=== PATIENT | male | born 1965 | race Caucasian/White ===

== ENCOUNTER 2016-11-29 10:24 | Emergency (ER) | payer OTHER ==
[~2016-11-29] VITALS: Ht 182.9 cm; Wt 98.0 kg
[~2016-11-29 10:24] MED LIST: NICO21DI5 TD; NORCOTAB PO; TYLE325T5 PO; XARE15TA PO
[2016-11-29 11:31] LABS: BASO # 0.1 K/mm3 (0.0-0.2); BASO % 0.9 % (0.0-1.0); EOS # 0.1 K/mm3 (0.0-0.50); LARGE UNSTAINED CELL # 0.1 K/mm3 (0.0-0.4); LARGE UNSTAINED CELL % 2.2 % (0.0-4.0); LYMPH # 1.6 K/mm3 (1.5-4.5); MEAN CORPUSCULAR HEMOGLOBIN 32.2 pg (27.0-33.0); MEAN CORPUSCULAR HGB CONC 34.2 g/dl (32.0-36.5); MEAN CORPUSCULAR VOLUME 94.1 fl (80.0-96.0); MONO # 0.4 K/mm3 (0.0-0.8); MONO % 6.6 % (0.0-5.0); NEUTROPHILS % 65.3 % (36.0-66.0); PLATELET COUNT, AUTOMATED 177 k/mm3 (150-450); WHITE BLOOD COUNT 6.2 K/mm3 (4.0-10.0)
[2016-11-29 11:51] LABS: ANION GAP 7 MEQ/L (8-16); BLOOD UREA NITROGEN 9 MG/DL (7-18); CARBON DIOXIDE LEVEL 28 MEQ/L (21-32); CHLORIDE LEVEL 105 MEQ/L (98-107); CREATININE FOR GFR 0.85 MG/DL (0.70-1.30); GLOMERULAR FILTRATION RATE > 60.0 (>60); GLUCOSE, FASTING 96 MG/DL (70-105); POTASSIUM SERUM 4.2 MEQ/L (3.5-5.1); SODIUM LEVEL 140 MEQ/L (136-145)
--- NOTE | 2016-11-29 11:52 | REP ---
CHEST, TWO VIEWS: HISTORY: Chest pain. COMPARISON: 05/09/2015 Linear densities are present in the right lower lobe consistent with atelectasis or scar. There is blunting of the right costophrenic angle due to pleural thickening. The left lung is clear. The heart is normal in size. The pulmonary vasculature is normal in appearance. The bony structure is intact. IMPRESSION: Right lower lobe atelectasis or scar. Signed by hKoa Watkins MD 11/29/2016 11:59 A
[2016-11-29] MEDS ORDERED: ASPIRIN 81 MG CHEW TABLET PO ONE (12:45)
[2016-11-29] MEDS: NITROGLYCERIN 0.4 MG SUBL TABLET SL PRN ×2 (12:59→13:20)
[2016-11-29] MEDS ORDERED: ISOVUE-370 76% 100ML VIAL (Q9967) As Ordered ONE (13:04)
[2016-11-29 13:20] VITALS: BP 146/92
[2016-11-29] MEDS ORDERED: ACETAMINOPHEN TAB 650MG DOSE (2X325MG) PO ONE (13:30)
--- NOTE | 2016-11-29 13:41 | REP ---
CT pulmonary angiogram: With IV contrast. History: Chest pain. Comparison studies: Comparison chest CT study May 09, 2015. Contrast dose: 75 cc's of Isovue [address] technique: Helical scanning is acquired and overlapping 1.5 mm and contiguous 3 mm axial images are reformatted. In addition, a 3-D work station is deployed to generate thick slab maximum intensity projection images in sagittal and coronal imaging projections. CT pulmonary angiographic findings: There is good opacification of the pulmonary arterial tree. There is no CT evidence of pulmonary embolism. Maximal intensity projection images show no vessel cutoff or filling defect to suggest a pulmonary arterial thrombus. The thoracic aorta enhances normally and homogeneously and is normal in caliber and course. There are several bands of coarse linear fibrosis in the right lower lobe unchanged from comparison study. No pulmonary mass lesion is seen. No new infiltrate is seen. There is some pleural thickening on the right. No pleural effusion is seen. There is marked diffuse fatty infiltration of the liver again noted. No hilar or mediastinal mass or adenopathy is seen. No bony destructive lesion is observed. Impression: No CT evidence of pulmonary embolism. Marked diffuse fatty infiltration of the liver again noted. Bands of linear fibrosis in the right lung and some pleural thickening on the right unchanged. Signed by Kaushik Chen MD 11/29/2016 03:08 P
[2016-11-29 17:13] VITALS: BP 140/88
--- NOTE | 2016-11-30 12:17 | ECGEPIP ---
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
--- NOTE | 2016-12-03 08:13 | ECGEPIP ---
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
== END 2016-11-29 17:32 | disposition home or self-care (01) ==
LOC: M ED 11:14
DX: R07.9 Chest pain, unspecified (principal); J44.9 Chronic obstructive pulmonary disease, unspecified; K57.90 Diverticulosis of intestine, part unspecified, without perforation or abscess without bleeding; F17.200 Nicotine dependence, unspecified, uncomplicated; Z86.711 Personal history of pulmonary embolism; Z82.49 Family history of ischemic heart disease and other diseases of the circulatory system; Z79.01 Long term (current) use of anticoagulants; Z79.899 Other long term (current) drug therapy

== ENCOUNTER → 2017-02-06 | Outpatient (REF) | payer OTHER | LOC: M SFHCPLAZ 11:35 | PROVIDERS: ATTEND Family Medicine | DX: R00.0 Tachycardia, unspecified (principal); Z53.8 Procedure and treatment not carried out for other reasons ==

== ENCOUNTER → 2017-02-11 | Outpatient (REF) | payer OTHER ==
[2017-02-11 12:24] LABS: ALBUMIN 3.9 GM/DL (3.2-5.2); ALBUMIN/GLOBULIN RATIO 1.15 (1.00-1.93); ALKALINE PHOSPHATASE 51 U/L (45-117); ALT/SGPT 39 U/L (12-78); ANION GAP 13 MEQ/L (8-16); AST/SGOT 25 U/L (15-37); BILIRUBIN,TOTAL 0.8 MG/DL (0.2-1.0); BLOOD UREA NITROGEN 10 MG/DL (7-18); CARBON DIOXIDE LEVEL 26 MEQ/L (21-32); CHLORIDE LEVEL 103 MEQ/L (98-107); CHOLESTEROL LEVEL 161 MG/DL (<200); CREATININE FOR GFR 0.83 MG/DL (0.70-1.30); GLOMERULAR FILTRATION RATE > 60.0 (>56); GLUCOSE, FASTING 89 MG/DL (70-105); SODIUM LEVEL 142 MEQ/L (136-145); TOTAL PROTEIN 7.3 GM/DL (6.4-8.2); TRIGLYCERIDES LEVEL 55 MG/DL (<150)
== END ==
LOC: M LABDRAW1 08:17
PROVIDERS: ATTEND Family Medicine
DX: R00.0 Tachycardia, unspecified (principal)

== ENCOUNTER → 2017-03-21 | Outpatient (REF) | payer OTHER ==
[2017-03-21 18:50] LABS: BASO # 0.1 10^3/uL (0.0-0.2); EOS # 0.3 10^3/uL (0.0-0.50); EOS % 4.2 % (0.0-3.0); IMMATURE GRANULOCYTE % 0.3 % (0-0); LYMPH # 2.1 10^3/uL (1.5-4.5); LYMPH % 34.9 % (24.0-44.0); MEAN CORPUSCULAR HEMOGLOBIN 30.7 pg (27.0-33.0); MEAN CORPUSCULAR HGB CONC 33.5 g/dl (32.0-36.5); MEAN CORPUSCULAR VOLUME 91.7 fl (80.0-96.0); MONO # 0.7 10^3/uL (0.0-0.8); MONO % 11.7 % (0.0-5.0); NEUTROPHILS # 2.8 10^3/uL (1.8-7.7); NEUTROPHILS % 47.9 % (36.0-66.0); PLATELET COUNT, AUTOMATED 188 10^3/uL (150-450); RED CELL DISTRIBUTION WIDTH 12.9 % (11.5-14.5); WHITE BLOOD COUNT 5.9 10^3/uL (4.0-10.0)
[2017-03-21 19:14] LABS: ADD MORPHOLOGY? NO
[2017-03-25 08:08] LABS: D001-IgE D pteronyssinus <0.10 kU/L (Class 0); E001-IgE Cat Epith/Dander < 0.10 kU/L (Class 0); E005-IgE Dog Dander < 0.10 kU/L (Class 0); G002-IgE Bermuda Grass < 0.10 kU/L (Class 0); G008-IgE Kentucky Bluegrass < 0.10 kU/L (Class 0); M001-IgE Penicillium chrysogen < 0.10 kU/L (Class 0); M002 IgE Cladosporium herbaru < 0.10 kU/L (Class 0); M003 IgE Aspergillus fumigatu < 0.10 kU/L (Class 0); M006-IgE Alternaria alternata < 0.10 kU/L (Class 0); T001-IgE Maple/Box Elder < 0.10 kU/L (Class 0); T003-IgE Common Silver Birch < 0.10 kU/L (Class 0); T007-IgE Oak, White < 0.10 kU/L (Class 0); T008-IgE Elm, American < 0.10 kU/L (Class 0); T015-IgE Ash, White < 0.10 kU/L (Class 0); T041-IgE Hickory, White < 0.10 kU/L (Class 0); W001-IgE Ragweed, Short < 0.10 kU/L (Class 0); W009-IgE Plantain, English < 0.10 kU/L (Class 0); W014-IgE Pigweed, Rough < 0.10 kU/L (Class 0); W018-IgE Sheep Sorrel < 0.10 kU/L (Class 0)
== END ==
LOC: M LAB REF 16:47
PROVIDERS: ATTEND Internal Medicine Pulmonary Disease
DX: R06.00 Dyspnea, unspecified (principal); J38.3 Other diseases of vocal cords

== ENCOUNTER → 2017-03-21 | Outpatient (REF) | payer OTHER | LOC: M LAB REF 13:10 | PROVIDERS: ATTEND Internal Medicine Pulmonary Disease | DX: R06.00 Dyspnea, unspecified (principal) ==

== ENCOUNTER 2017-08-14 09:19 | Outpatient (CLI) | payer OTHER ==
[2017-08-14] MEDS: MEPOLIZUMAB SC (10:13)
== END 2017-08-14 11:15 | disposition home or self-care (01) ==
LOC: M INFU 09:19
DX: J45.50 Severe persistent asthma, uncomplicated (principal); I10 Essential (primary) hypertension; Z79.899 Other long term (current) drug therapy; Z87.891 Personal history of nicotine dependence
CPT/HCPCS: J2182

== ENCOUNTER 2018-01-29 07:57 | Outpatient (CLI) | payer OTHER ==
[2018-01-29] MEDS: MEPOLIZUMAB SC (08:41)
[2018-01-29] MEDS ORDERED: MIXING FEE FOR PATIENT OWN MEDS SUPPLIED BY INSURANCE/PT XX (09:00)
== END 2018-01-29 09:15 | disposition home or self-care (01) ==
LOC: M INFU 07:57
DX: J45.50 Severe persistent asthma, uncomplicated (principal); Z79.899 Other long term (current) drug therapy; Z79.52 Long term (current) use of systemic steroids
CPT/HCPCS: 96372

== ENCOUNTER 2018-03-19 04:55 | Emergency (ER) | payer OTHER ==
[2018-03-19] MEDS: IPRATROPIUM 0.5MG/ALBUTEROL 2.5MG INH SOL UD 3ML (DUONEB)(J7620) NEB (05:11)
[2018-03-19] MEDS: OXYMETAZOLINE NASAL SPRAY (AFRIN) (06:36)
== END 2018-03-19 06:45 | disposition home or self-care (01) ==
LOC: M ED 04:55
DX: R04.0 Epistaxis (principal); J44.9 Chronic obstructive pulmonary disease, unspecified; Z87.891 Personal history of nicotine dependence; Z79.899 Other long term (current) drug therapy
CPT/HCPCS: 94640

== ENCOUNTER 2018-04-23 18:03 | Emergency (ER) | payer OTHER ==
[2018-04-23] MEDS: diazePAM 10 MG TAB PO (18:24)
[2018-04-23] MEDS: KETOROLAC 60 MG/2 ML VIAL (J1885) IM (18:24)
[2018-04-23] MEDS: PERCOCET 5MG/325MG TAB PO (18:24)
[2018-04-23] MEDS: OXYCODONE/APAP 5MG/325MG(BULK FOR ED) 1 TABLET PO (19:15)
== END 2018-04-23 20:09 | disposition home or self-care (01) ==
LOC: M ED 18:03
DX: S22.41XA Multiple fractures of ribs, right side, initial encounter for closed fracture (principal); W19.XXXA Unspecified fall, initial encounter; Y92.410 Unspecified street and highway as the place of occurrence of the external cause; J44.9 Chronic obstructive pulmonary disease, unspecified; I10 Essential (primary) hypertension
CPT/HCPCS: J1885

== ENCOUNTER 2019-05-19 11:58 | Emergency (ER) | payer OTHER ==
[~2019-05-19 11:58] MED LIST changes: +ALBU83IN INH; +ASMA1AER3 INH; +EPIP0.3I2 INJ; +HYDR-3715 PO; +LISI-538 PO; -NICO21DI5 TD; +NICO21DI6 TD; -NORCOTAB PO; +NUCA1INJ SC; +PERC5TAB12 PO; +PRED10PA2 PO; +PROAAER10 INH; +PROTPAK PO; +SING10TA32 PO; +STRI1AER2 INH; +VARE1TA PO
== END 2019-05-19 13:00 | disposition left against medical advice (07) ==
LOC: M ED 11:58
DX: Z53.21 Procedure and treatment not carried out due to patient leaving prior to being seen by health care provider (principal)

== ENCOUNTER 2020-12-13 11:17 | Emergency (ER) | payer MEDICARE, MEDICAID ==
[~2020-12-13] VITALS: Ht 182.9 cm; Wt 77.3 kg
[~2020-12-13 11:17] MED LIST changes: +FOLI1TAB11 PO; +IBUP80TA PO; -LISI-538 PO; +LISI20TA33 PO; +OMEP40CA4 PO; +PERCOCET PO; +THIA100T7 PO
[2020-12-13] MEDS ORDERED: COMBIVENT RESPIMAT 100-20MCG INHALER 4GM INH ONE (11:40)
[2020-12-13] MEDS ORDERED: dexameTHASONE 20MG/5ML VIAL (J1100 PER 1MG) IV ONE (12:10)
--- NOTE | 2020-12-13 12:14 | REP ---
INDICATION: DYSPNEA/COUGH. COMPARISON: 04/23/2018, 11/29/2016. TECHNIQUE: Single portable AP view of the chest was performed. FINDINGS: There is chronic pleural and parenchymal fibrosis in the right lung base which is stable. No new infiltrate is seen. The heart is normal in size. The mediastinal silhouette is unchanged. There are degenerative changes of the spine. IMPRESSION: Chronic changes in the right lung base appear stable. No evidence for superimposed acute infiltrate. <Electronically signed by Cm Molina > 12/13/20 1212
[2020-12-13 12:48] LABS: BASO # 0.1 10^3/uL (0.0-0.2); BASO % 0.9 % (0.0-1.0); EOS # 0.5 10^3/uL (0.0-0.5); EOS % 5.1 % (0.0-3.0); HEMOGLOBIN 13.6 g/dl (13.5-17.5); LYMPH # 1.4 10^3/uL (1.5-5.0); LYMPH % 14.4 % (24.0-44.0); MEAN CORPUSCULAR HEMOGLOBIN 31.3 pg (27.0-33.0); MEAN CORPUSCULAR HGB CONC 32.4 g/dl (32.0-36.5); MEAN CORPUSCULAR VOLUME 96.8 fl (80.0-96.0); MONO # 0.8 10^3/uL (0.0-0.8); MONO % 7.9 % (2.0-8.0); NEUTROPHILS # 7.1 10^3/uL (1.5-8.5); NEUTROPHILS % 70.9 % (36.0-66.0); PLATELET COUNT, AUTOMATED 258 10^3/uL (150-450); RED BLOOD COUNT 4.34 10^6/uL (4.30-6.10)
[2020-12-13 13:17] LABS: RSV AMPLIFICATION NEGATIVE (NEGATIVE)
[2020-12-13 13:23] LABS: ALBUMIN 2.6 GM/DL (3.2-5.2); ALT/SGPT 26 U/L (12-78); BILIRUBIN,DIRECT 0.2 MG/DL (0.0-0.2); BILIRUBIN,TOTAL 0.5 MG/DL (0.2-1.0); BLOOD UREA NITROGEN 5 MG/DL (7-18); CALCIUM LEVEL 7.8 MG/DL (8.5-10.1); CARBON DIOXIDE LEVEL 30 MEQ/L (21-32); CHLORIDE LEVEL 105 MEQ/L (98-107); CK-MB VALUE MASS 1.1 NG/ML (<3.6); CPK CREATINE PHOSPHOKINASE 40 U/L (39-308); CREATININE FOR GFR 0.54 MG/DL (0.70-1.30); ETHYL ALCOHOL (ETHANOL) 0.187 % (0.000-0.010); GLOMERULAR FILTRATION RATE > 60.0 (>56); GLUCOSE, FASTING 80 MG/DL (70-100); MB/CK RELATIVE INDEX 2.75 (< OR =4); NT-PRO BNP 50 PG/ML (<125); POTASSIUM SERUM 3.6 MEQ/L (3.5-5.1); SODIUM LEVEL 140 MEQ/L (136-145); THYROXINE (T4) 7.3 UG/DL (4.5-12.0); TOTAL PROTEIN 6.8 GM/DL (6.4-8.2); TROPONIN I < 0.02 NG/ML (< 0.10)
[2020-12-13] MEDS ORDERED: PRED20TA PO (13:43)
[2020-12-13 14:15] VITALS: BP 165/82
--- NOTE | 2020-12-15 05:50 | ECGEPIP ---
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
== END 2020-12-13 15:17 | disposition home or self-care (01) ==
LOC: EDBD 11:17 → M ED 11:17
DX: J44.9 Chronic obstructive pulmonary disease, unspecified (principal); W57.XXXA Bitten or stung by nonvenomous insect and other nonvenomous arthropods, initial encounter; Y92.89 Other specified places as the place of occurrence of the external cause; I10 Essential (primary) hypertension; J45.909 Unspecified asthma, uncomplicated; Z79.899 Other long term (current) drug therapy; F17.210 Nicotine dependence, cigarettes, uncomplicated; F15.20 Other stimulant dependence, uncomplicated
CPT/HCPCS: 71045; 80048; 80076; 82077; 82550; 82553; 83605; 83880; 84436; 84443; 84484; 85025; 86850; 86900; 86901; 87631; 93005; 93041; 94640; 94760; 96374; 99285; J1100